=== PATIENT | male | born 1995 | race Asian ===

== ENCOUNTER 2024-02-13 04:58 | Emergency (ER) | payer OTHER ==
[~2024-02-13] VITALS: Ht 180.3 cm; Wt 115.1 kg
[2024-02-13 05:05] VITALS: TEMP 99
[2024-02-13] MEDS ORDERED: ACET-3385 PO (06:21)
[2024-02-13] MEDS ORDERED: SULF-261 PO (06:21)
[2024-02-13] MEDS ORDERED: CEPH-558 PO (06:21)
[2024-02-13] MEDS: CEPHALEXIN MONOHYDRATE 500 MG CAPSULE PO ONE (06:31)
[2024-02-13] MEDS: ACETAMINOPHEN 500 MG TABLET PO ONE (06:31)
[2024-02-13] MEDS: SULFAMETHOX/TRIMETH DS 800-160 MG/TABLET PO ONE (06:31)
[2024-02-13 06:40] VITALS: BP 121/74; PULSE 98; RESP 18
== END 2024-02-13 06:53 | disposition home or self-care (01) ==
LOC: EMS 04:59
DX: L03.317 Cellulitis of buttock (principal)
CPT/HCPCS: 99284; Z7502; Z7610

== ENCOUNTER 2025-04-13 20:57 | Emergency (ER) | payer SELFPAY ==
[~2025-04-13] VITALS: Ht 180.3 cm; Wt 121.8 kg
[~2025-04-13 20:57] MED LIST: ACET-3385 PO; CEPH-558 PO; SULF-261 PO
[2025-04-13 21:20] VITALS: TEMP 97.9
[2025-04-13 22:00] VITALS: BP 135/79; PULSE 97; RESP 15; O2SAT 99
[2025-04-13] MEDS ORDERED: PRED-554 PO (22:51)
[2025-04-13] MEDS ORDERED: HYDR-4268 TP (22:52)
== END 2025-04-13 23:59 | disposition home or self-care (01) ==
LOC: EMS 20:57
DX: L25.9 Unspecified contact dermatitis, unspecified cause (principal)
CPT/HCPCS: 99283; Z7502